=== PATIENT | male | born 1965 | race African-American/Black ===

== ENCOUNTER 2016-09-27 19:25 | Emergency (ER) | payer MEDICARE, OTHER ==
[~2016-09-27] VITALS: Ht 185.4 cm; Wt 104.5 kg
[~2016-09-27 19:25] MED LIST: ASPI-556 PO; BIDIL PO; CARV6 PO; COMBIH IH; FURO20 PO; LISI-618 PO
[2016-09-27] MEDS ORDERED: ALBU8.5H IH (19:35)
[2016-09-27] MEDS ORDERED: AMLO-511 PO (19:35)
[2016-09-27] MEDS ORDERED: MOME13HF IH (19:35)
[2016-09-27] MEDS ORDERED: ALBUTEROL SULFATE 5 MG/ML 20 ML NEB SOLN [BULK] NEB ONE (21:30)
[2016-09-27] MEDS ORDERED: ONDANSETRON HCL 4 MG TABLET PO ONE (21:30)
[2016-09-27] MEDS ORDERED: IPRATROPIUM BROMIDE 0.5 MG/2.5 ML NEB SOLUTION NEB ONE (21:30)
[2016-09-27] MEDS ORDERED: ACETAMINOPHEN 500 MG TABLET PO ONE (21:30)
[2016-09-27 21:50] VITALS: BP 147/76
== END 2016-09-27 22:11 | disposition home or self-care (01) ==
LOC: EMS 19:26
DX: K52.9 Noninfective gastroenteritis and colitis, unspecified (principal); K64.9 Unspecified hemorrhoids; J45.901 Unspecified asthma with (acute) exacerbation; K59.00 Constipation, unspecified; I11.0 Hypertensive heart disease with heart failure; I50.9 Heart failure, unspecified; F17.200 Nicotine dependence, unspecified, uncomplicated
CPT/HCPCS: 94640; 99283; 99406; Q0162

== ENCOUNTER 2021-11-12 00:51 | Emergency (ER) | payer MEDICARE, OTHER ==
[~2021-11-12] VITALS: Ht 188 cm; Wt 104.5 kg
[~2021-11-12 00:51] MED LIST changes: +ALBU8.5H8 IH; +AMLO-257 PO; -BIDIL PO; -LISI-618 PO; +LISI20TA24 PO; +MOME13HF IH
[2021-11-12] MEDS ORDERED: PredniSONE 20 MG TABLET PO ONE (02:30)
[2021-11-12] MEDS ORDERED: CLINDAMYCIN 600 MG/D5% WATER 50 ML IV ONE (02:30)
[2021-11-12 02:37] LABS: BASOPHILS % (AUTO) 0.6 % (0.0-2.0); EOSINOPHILS % (AUTO) 6.1 % (1.0-6.0); HEMATOCRIT 43.2 % (41-53); HEMOGLOBIN 14.3 g/dL (13.5-17.5); LYMPHOCYTES # (AUTO) 1.7 K/uL (1.0-4.8); LYMPHOCYTES % (AUTO) 13.5 % (22.0-44.0); MEAN CORPUSCULAR HEMOGLOBIN 29.5 pg (26.0-34.0); MEAN CORPUSCULAR HGB CONC 33.1 G/dL (31.0-37.0); MEAN CORPUSCULAR VOLUME 89 fL (80-100); MONOCYTES # (AUTO) 1.2 K/uL (0.1-1.0); MONOCYTES % (AUTO) 9.3 % (2.0-9.0); NEUTROPHILS # (AUTO) 8.9 K/uL (1.8-7.7); NEUTROPHILS % (AUTO) 70.5 % (40.0-70.0); PLATELET COUNT (AUTO) 227 K/uL (150-450); RED BLOOD CELL COUNT(AUTO) 4.84 MIL/uL (4.50-5.90); RED CELL DISTRIBUTION WIDTH 14.5 % (11.5-14.5)
[2021-11-12 02:44] LABS: ANION GAP 7 mmol/L (8-16); CALCIUM, TOTAL 9.3 mg/dL (8.8-10.5); CARBON DIOXIDE 30 mmol/L (22-29); CHLORIDE 101 mmol/L (98-107); CREATININE 1.36 mg/dL (0.60-1.30); GLUCOSE,RANDOM 95 mg/dL (70-110); POTASSIUM 3.4 mmol/L (3.5-5.1); SODIUM SERUM 138 mmol/L (136-145); UREA NITROGEN, BLOOD 18 mg/dL (7-18)
[2021-11-12 02:45] LABS: GLOMERULAR FILTR. RATE CALC > 60 mL/min (>60)
[2021-11-12 02:49] LABS: ALANINE AMINOTRANSFERASE 59 U/L (12-78); ALBUMIN 3.5 g/dL (3.4-5.0); ALKALINE PHOSPHATASE 126 U/L (46-116); ASPARTATE AMINOTRANSFERASE 34 U/L (15-37); BILIRUBIN,TOTAL 0.9 mg/dL (0.1-1.0); TOTAL PROTEIN, SERUM 7.4 g/dL (6.4-8.2)
[2021-11-12] MEDS ORDERED: KETOROLAC TROMETHAMINE 30 MG/ML VIAL IVP ONE (03:00)
[2021-11-12] MEDS ORDERED: HYDROCODONE/ACETAMINOPHEN 5-325 MG TABLET PO ONE (03:45)
[2021-11-12] MEDS ORDERED: CLIN300C58 PO (03:51)
[2021-11-12 03:54] VITALS: BP 153/88
== END 2021-11-12 04:01 | disposition home or self-care (01) ==
LOC: EMS 00:52
DX: L03.114 Cellulitis of left upper limb (principal); I11.0 Hypertensive heart disease with heart failure; I50.9 Heart failure, unspecified; J45.909 Unspecified asthma, uncomplicated; Z79.899 Other long term (current) drug therapy; Z79.82 Long term (current) use of aspirin
CPT/HCPCS: 99284; 96365; 96375; 80053; 85025; 36415; J3490; J1885; J7512